=== PATIENT | female | born 1995 | race Caucasian/White ===

== ENCOUNTER 2017-08-31 08:58 | Emergency (ER) | payer MEDICAID ==
[~2017-08-31] VITALS: Ht 157.5 cm; Wt 111.4 kg
[~2017-08-31 08:58] MED LIST: CLIN300C85 PO
[2017-08-31 09:01] VITALS: BP 132/80
[2017-08-31] MEDS ORDERED: TRAM50TA2 PO (09:12)
[2017-08-31] MEDS ORDERED: CEPH500C5 PO (09:12)
== END 2017-08-31 09:33 | disposition home or self-care (01) ==
LOC: ER 08:59
DX: K02.9 Dental caries, unspecified (principal); F17.210 Nicotine dependence, cigarettes, uncomplicated; Z86.14 Personal history of Methicillin resistant Staphylococcus aureus infection; Z88.0 Allergy status to penicillin; Z88.5 Allergy status to narcotic agent; Z79.2 Long term (current) use of antibiotics; Z79.899 Other long term (current) drug therapy
CPT/HCPCS: 99283

== ENCOUNTER 2017-10-05 20:08 | Emergency (ER) | payer MEDICAID ==
[~2017-10-05] VITALS: Ht 157.5 cm; Wt 112.2 kg
[~2017-10-05 20:08] MED LIST changes: +CEPH500C5 PO
[2017-10-05] MEDS ORDERED: NAPR-56 PO (20:30)
[2017-10-05] MEDS ORDERED: CEPH-571 PO (20:30)
[2017-10-05 20:35] VITALS: BP 109/71
== END 2017-10-05 20:37 | disposition home or self-care (01) ==
LOC: ER 20:09
DX: K08.89 Other specified disorders of teeth and supporting structures (principal); Z86.14 Personal history of Methicillin resistant Staphylococcus aureus infection; Z88.5 Allergy status to narcotic agent; Z88.0 Allergy status to penicillin; Z79.899 Other long term (current) drug therapy
CPT/HCPCS: 99283

== ENCOUNTER 2017-10-12 19:08 | Emergency (ER) | payer MEDICAID ==
[~2017-10-12] VITALS: Ht 157.5 cm; Wt 109.0 kg
[~2017-10-12 19:08] MED LIST changes: +CEPH-571 PO; +NAPR-56 PO
[2017-10-12 19:40] VITALS: BP 129/50
[2017-10-12] MEDS ORDERED: CLIN150C2 PO (20:48)
== END 2017-10-12 21:26 | disposition home or self-care (01) ==
LOC: ER 19:08
DX: J06.9 Acute upper respiratory infection, unspecified (principal); J32.1 Chronic frontal sinusitis; J20.9 Acute bronchitis, unspecified; Z86.14 Personal history of Methicillin resistant Staphylococcus aureus infection; Z88.0 Allergy status to penicillin; Z88.5 Allergy status to narcotic agent; Z79.899 Other long term (current) drug therapy
CPT/HCPCS: 99283

== ENCOUNTER 2017-10-31 04:11 | Emergency (ER) | payer MEDICAID, OTHER ==
[~2017-10-31] VITALS: Ht 157.5 cm; Wt 111.2 kg
[~2017-10-31 04:11] MED LIST changes: +LEVO500T2 PO; +METH4TAB3 PO
[2017-10-31 04:18] VITALS: BP 155/89
[2017-10-31] MEDS ORDERED: ibuprofen tablet 400 MG TABLET PO ONE (05:00)
[2017-10-31] MEDS ORDERED: oxymetazoline 15 ML nasal spray NS ONE (05:00)
[2017-10-31] MEDS ORDERED: ACET-2119 PO (05:08)
[2017-10-31] MEDS ORDERED: LORA10TA65 PO (05:08)
[2017-10-31] MEDS ORDERED: AFRIN NS (05:08)
[2017-10-31] MEDS ORDERED: DIPH25CA83 PO (05:08)
[2017-10-31] MEDS ORDERED: diphenhydrAMINE 25mg capsule PO ONE (05:10)
[2017-10-31] MEDS ORDERED: HYDROcodone/acetaminophen 10/325mg tab PO ONE (05:20)
== END 2017-10-31 05:31 | disposition home or self-care (01) ==
LOC: ER 04:12
DX: O99.52 Diseases of the respiratory system complicating childbirth (principal); O26.892 Other specified pregnancy related conditions, second trimester; J32.9 Chronic sinusitis, unspecified; K08.89 Other specified disorders of teeth and supporting structures; Z3A.23 23 weeks gestation of pregnancy; Z86.14 Personal history of Methicillin resistant Staphylococcus aureus infection; Z88.0 Allergy status to penicillin; Z88.5 Allergy status to narcotic agent; Z79.899 Other long term (current) drug therapy
CPT/HCPCS: 99284; Q0163

== ENCOUNTER 2018-11-19 19:40 | Emergency (ER) | payer MEDICAID ==
[~2018-11-19] VITALS: Ht 157.5 cm; Wt 110.0 kg
[~2018-11-19 19:40] MED LIST changes: -CEPH500C5 PO; +CLIN-96 PO; -CLIN300C85 PO; +DIPH25CA83 PO; -LEVO500T2 PO; +LORA10TA65 PO; -NAPR-56 PO
[2018-11-19 19:43] VITALS: BP 165/76
[2018-11-19] MEDS ORDERED: dexamethasone 4mg tablet PO ONE (21:20)
[2018-11-19] MEDS ORDERED: albuterol 2.5 MG/3 ML nebule CONTNEB PRN (21:20)
[2018-11-19] MEDS ORDERED: LORA10TA7 PO (21:23)
[2018-11-19] MEDS ORDERED: PRED20TA PO (21:23)
[2018-11-19] MEDS ORDERED: ALBU6.7H9 INH (21:23)
[2018-11-19] MEDS ORDERED: DIPH-518 PO (21:23)
[2018-11-19] MEDS ORDERED: diphenhydrAMINE 25 MG/10 ML UD oral solution PO ONE (21:25)
[2018-11-20] MEDS ORDERED: HYDR25CA PO (22:52)
== END 2018-11-19 22:35 | disposition home or self-care (01) ==
LOC: ER 19:41
DX: J40 Bronchitis, not specified as acute or chronic (principal); Z86.14 Personal history of Methicillin resistant Staphylococcus aureus infection; Z88.0 Allergy status to penicillin; Z88.5 Allergy status to narcotic agent; Z79.2 Long term (current) use of antibiotics; Z79.899 Other long term (current) drug therapy
CPT/HCPCS: 94644; 94760; 99285; J8540; Q0163; 99283

== ENCOUNTER 2018-11-20 20:36 | Emergency (ER) | payer MEDICAID ==
[~2018-11-20] VITALS: Ht 157.5 cm; Wt 110.0 kg
[~2018-11-20 20:36] MED LIST changes: +ALBU6.7H9 INH; +DIPH-518 PO; +LORA10TA7 PO; +PRED20TA PO
[2018-11-20 21:20] LABS: BASOPHILS % (AUTO) 0.1 % (0-1); EOSINOPHILS % (AUTO) 0 % (0-6); HEMATOCRIT 39.8 % (35.0-45.0); HEMOGLOBIN 13.6 g/dl (12.0-16.0); LYMPHOCYTES # (AUTO) 1.1 X10'3 (1.1-4.8); LYMPHOCYTES % (AUTO) 9.6 % (21-51); MEAN CORPUSCULAR HEMOGLOBIN 31.1 PG (27.0-31.0); MEAN CORPUSCULAR HGB CONC 34.1 g/dL (33.0-36.5); MEAN CORPUSCULAR VOLUME 91.2 FL (78-98); MEAN PLATELET VOLUME 7.4 FL (7.4-10.4); MONOCYTES # (AUTO) 0.6 X10'3 (0-0.9); MONOCYTES % (AUTO) 5.8 % (2-12); NEUTROPHILS # (AUTO) 9.2 X10'3 (1.8-7.7); NEUTROPHILS % (AUTO) 84.5 % (42-75); PLATELET COUNT 355 X10'3 (140-440); RED BLOOD COUNT 4.37 X10'6 (4.20-5.60); WHITE BLOOD COUNT 10.9 X10'3 (4.5-11.0)
[2018-11-20 21:32] LABS: ALANINE AMINOTRANSFERASE 25 U/L (12-78); ALBUMIN/GLOBULIN RATIO 0.9 (1.1-1.5); ALKALINE PHOSPHATASE 70 IU/L (46-116); ANION GAP 13 (8-16); ASPARTATE AMINO TRANSFERASE 8 U/L (10-37); BILIRUBIN,TOTAL 0.2 MG/DL (0.1-1.0); BLOOD UREA NITROGEN 15 MG/DL (7-18); BUN/CREATININE RATIO 18.8 (6.6-38.0); CALCIUM 9.6 MG/DL (8.5-10.1); CHLORIDE 106 MMOL/L (99-107); GLUCOSE 139 MG/DL (70-104); POTASSIUM 4.1 MMOL/L (3.5-5.1); SODIUM 142 MMOL/L (135-145); TOTAL CARBON DIOXIDE 23.4 MMOL/L (24-32); TOTAL PROTEIN 8.3 G/DL (6.4-8.2); eGFR > 90 ML/MIN
[2018-11-20 21:35] LABS: PARTIAL THROMBOPLASTIN TIME 30 SECONDS (22-32)
[2018-11-20] MEDS ORDERED: HYDR25CA PO (22:52)
[2018-11-20 23:10] VITALS: BP 158/91
== END 2018-11-20 23:17 | disposition home or self-care (01) ==
LOC: ER 20:37
DX: F41.9 Anxiety disorder, unspecified (principal); I10 Essential (primary) hypertension; F17.200 Nicotine dependence, unspecified, uncomplicated; Z86.14 Personal history of Methicillin resistant Staphylococcus aureus infection; Z88.0 Allergy status to penicillin; Z88.5 Allergy status to narcotic agent; Z79.899 Other long term (current) drug therapy
CPT/HCPCS: 36415; 71046; 80053; 84484; 85025; 85610; 85730; 93005; 99284

== ENCOUNTER 2018-12-12 20:04 | Emergency (ER) | payer MEDICAID ==
[~2018-12-12] VITALS: Ht 157.5 cm; Wt 110.0 kg
[~2018-12-12 20:04] MED LIST changes: +HYDR25CA PO; -PRED20TA PO
[2018-12-12 20:06] VITALS: BP 151/92
[2018-12-12] MEDS ORDERED: AMOX500C2 PO (20:28)
== END 2018-12-12 20:32 | disposition home or self-care (01) ==
LOC: ER 20:05
DX: J02.9 Acute pharyngitis, unspecified (principal); F41.9 Anxiety disorder, unspecified; Z86.14 Personal history of Methicillin resistant Staphylococcus aureus infection; Z88.0 Allergy status to penicillin; Z88.5 Allergy status to narcotic agent; Z79.899 Other long term (current) drug therapy
CPT/HCPCS: 99283

== ENCOUNTER 2018-12-15 14:09 | Emergency (ER) | payer MEDICAID ==
[~2018-12-15] VITALS: Ht 157.5 cm; Wt 121.0 kg
[~2018-12-15 14:09] MED LIST changes: +AMOX500C2 PO
[2018-12-15 14:23] VITALS: BP 117/51
[2018-12-15] MEDS ORDERED: ACET1TAB12 PO (17:01)
== END 2018-12-15 17:08 | disposition home or self-care (01) ==
LOC: ER 14:09
DX: J02.9 Acute pharyngitis, unspecified (principal); F41.9 Anxiety disorder, unspecified; Z88.0 Allergy status to penicillin; Z88.5 Allergy status to narcotic agent
CPT/HCPCS: 99282

== ENCOUNTER 2019-01-03 15:36 | Emergency (ER) | payer MEDICAID ==
[~2019-01-03] VITALS: Ht 157.5 cm; Wt 110.0 kg
[~2019-01-03 15:36] MED LIST changes: +ACET1TAB12 PO
[2019-01-03 16:58] LABS: BASOPHILS % (AUTO) 0.8 % (0-1); EOSINOPHILS # (AUTO) 0.2 X10'3 (0-0.9); EOSINOPHILS % (AUTO) 3.3 % (0-6); HEMATOCRIT 39.9 % (35.0-45.0); HEMOGLOBIN 13.7 g/dl (12.0-16.0); LYMPHOCYTES # (AUTO) 2.2 X10'3 (1.1-4.8); LYMPHOCYTES % (AUTO) 39.9 % (21-51); MEAN CORPUSCULAR HEMOGLOBIN 31.1 PG (27.0-31.0); MEAN CORPUSCULAR HGB CONC 34.4 g/dL (33.0-36.5); MEAN CORPUSCULAR VOLUME 90.4 FL (78-98); MEAN PLATELET VOLUME 7.4 FL (7.4-10.4); MONOCYTES # (AUTO) 0.4 X10'3 (0-0.9); MONOCYTES % (AUTO) 7.7 % (2-12); NEUTROPHILS # (AUTO) 2.7 X10'3 (1.8-7.7); NEUTROPHILS % (AUTO) 48.3 % (42-75); PLATELET COUNT 320 X10'3 (140-440); RED BLOOD COUNT 4.42 X10'6 (4.20-5.60); RED CELL DISTRIBUTION WIDTH 13.3 % (11.5-14.5); WHITE BLOOD COUNT 5.5 X10'3 (4.5-11.0)
[2019-01-03 17:21] LABS: ALANINE AMINOTRANSFERASE 35 U/L (12-78); ALBUMIN 4.1 G/DL (3.4-5.0); ALKALINE PHOSPHATASE 65 IU/L (46-116); ANION GAP 11 (8-16); ASPARTATE AMINO TRANSFERASE 16 U/L (10-37); BILIRUBIN,TOTAL 0.3 MG/DL (0.1-1.0); BLOOD UREA NITROGEN 8 MG/DL (7-18); BUN/CREATININE RATIO 12.1 (6.6-38.0); CALCIUM 8.9 MG/DL (8.5-10.1); CHLORIDE 104 MMOL/L (99-107); CREATININE 0.66 MG/DL (0.40-0.90); GLUCOSE 96 MG/DL (70-104); LIPASE 62 U/L (73-393); POTASSIUM 3.9 MMOL/L (3.5-5.1); SODIUM 141 MMOL/L (135-145); TOTAL CARBON DIOXIDE 26.1 MMOL/L (24-32); TOTAL PROTEIN 8.3 G/DL (6.4-8.2); eGFR > 90 ML/MIN
[2019-01-03 18:15] VITALS: BP 162/65
[2019-01-03 18:19] LABS: URINE HCG NEGATIVE (NEG)
[2019-01-03 18:24] LABS: CLARITY,URINE CLOUDY (Clear); COLOR,URINE YELLOW (Yellow); GLUCOSE, URINE NEGATIVE (Neg); KETONES,URINE NEGATIVE (Neg); LEUKOCYTE ESTERASE ,URINE NEGATIVE (Neg); NITRITES, URINE NEGATIVE (Neg); OCCULT BLOOD,URINE TRACE-INTACT (Neg); PROTEIN,URINE 30 mg/dl (Neg); UROBILINOGEN,URINE 0.2 E.U/dL (0.2-1.0)
[2019-01-03 18:27] LABS: UA COLLECTION TYPE CLN CATCH MIDSTREAM
[2019-01-03 18:29] LABS: MUCUS STRANDS MANY /LPF (Neg); SQUAMOUS EPITHELIAL CELL,UR MANY /LPF (FEW)
--- NOTE | 2019-01-03 18:30 | NUR ---
PT AWAITING MD AT THIS TIME. ALL LABS BACK. VISITOR AT BEDSIDE. PT IN NO ACUTE DISTRESS.
[2019-01-03 18:31] LABS: BACTERIA,URINE 2+ /HPF (Neg); RBC,URINE 0-2 /HPF (0-2); WBC,URINE 0-4 /HPF (0-4)
== END 2019-01-03 20:05 | disposition home or self-care (01) ==
LOC: ER 15:37
DX: R10.11 Right upper quadrant pain (principal); F41.9 Anxiety disorder, unspecified; Z86.14 Personal history of Methicillin resistant Staphylococcus aureus infection; Z88.0 Allergy status to penicillin; Z88.5 Allergy status to narcotic agent; Z79.2 Long term (current) use of antibiotics; Z79.899 Other long term (current) drug therapy
CPT/HCPCS: 36415; 80053; 81001; 81025; 83690; 85025; 85610; 99283

== ENCOUNTER 2019-01-13 13:29 | Emergency (ER) | payer MEDICAID ==
[~2019-01-13] VITALS: Ht 157.5 cm; Wt 110.0 kg
[~2019-01-13 13:29] MED LIST changes: -AMOX500C2 PO
[2019-01-13 13:53] VITALS: BP 127/85
[2019-01-13] MEDS ORDERED: LIDOcaine Viscous 15ml cup PO ONE (16:10)
[2019-01-13] MEDS ORDERED: mag hydrox/Alum hydrox/simeth 30ml oral suspension PO ONE (16:10)
[2019-01-13] MEDS ORDERED: CLIN-96 PO (16:13)
== END 2019-01-13 16:30 | disposition home or self-care (01) ==
LOC: ER 13:30
DX: J02.0 Streptococcal pharyngitis (principal); F41.9 Anxiety disorder, unspecified; F17.200 Nicotine dependence, unspecified, uncomplicated; Z86.14 Personal history of Methicillin resistant Staphylococcus aureus infection; Z88.0 Allergy status to penicillin; Z88.5 Allergy status to narcotic agent; Z79.2 Long term (current) use of antibiotics; Z79.899 Other long term (current) drug therapy
CPT/HCPCS: 87880; 99283

== ENCOUNTER 2019-04-20 15:17 | Emergency (ER) | payer MEDICAID ==
[~2019-04-20] VITALS: Ht 157.5 cm; Wt 118.0 kg
[~2019-04-20 15:17] MED LIST changes: +ALBU18HF2 INH; +AZIT250T83 PO; +CLIN-90 PO; -CLIN-96 PO
[2019-04-20 16:21] LABS: BASOPHILS % (AUTO) 0.9 % (0-1); EOSINOPHILS # (AUTO) 0.1 X10'3 (0-0.9); EOSINOPHILS % (AUTO) 2.9 % (0-6); HEMATOCRIT 41.1 % (35.0-45.0); LYMPHOCYTES # (AUTO) 1.7 X10'3 (1.1-4.8); LYMPHOCYTES % (AUTO) 39.5 % (21-51); MEAN CORPUSCULAR HEMOGLOBIN 30.5 PG (27.0-31.0); MEAN CORPUSCULAR HGB CONC 34.1 g/dL (33.0-36.5); MEAN CORPUSCULAR VOLUME 89.6 FL (78-98); MEAN PLATELET VOLUME 7.6 FL (7.4-10.4); MONOCYTES # (AUTO) 0.3 X10'3 (0-0.9); MONOCYTES % (AUTO) 7.4 % (2-12); NEUTROPHILS # (AUTO) 2.1 X10'3 (1.8-7.7); NEUTROPHILS % (AUTO) 49.3 % (42-75); PLATELET COUNT 311 X10'3 (140-440); RED BLOOD COUNT 4.59 X10'6 (4.20-5.60); WHITE BLOOD COUNT 4.3 X10'3 (4.5-11.0)
[2019-04-20 16:33] LABS: ALANINE AMINOTRANSFERASE 38 U/L (12-78); ALKALINE PHOSPHATASE 60 IU/L (46-116); ANION GAP 8 (8-16); ASPARTATE AMINO TRANSFERASE 20 U/L (10-37); BILIRUBIN,TOTAL 0.3 MG/DL (0.1-1.0); BLOOD UREA NITROGEN 13 MG/DL (7-18); BUN/CREATININE RATIO 19.7 (6.6-38.0); CALCIUM 9.1 MG/DL (8.5-10.1); CHLORIDE 106 MMOL/L (99-107); CREATININE 0.66 MG/DL (0.40-0.90); GLUCOSE 96 MG/DL (70-104); LIPASE 69 U/L (73-393); SODIUM 142 MMOL/L (135-145); TOTAL CARBON DIOXIDE 28.1 MMOL/L (24-32); TOTAL PROTEIN 7.9 G/DL (6.4-8.2); eGFR > 90 ML/MIN
[2019-04-20 16:39] LABS: CLARITY,URINE CLEAR (Clear); COLOR,URINE YELLOW (Yellow); GLUCOSE, URINE NEGATIVE (Neg); KETONES,URINE NEGATIVE (Neg); LEUKOCYTE ESTERASE ,URINE NEGATIVE (Neg); NITRITES, URINE NEGATIVE (Neg); OCCULT BLOOD,URINE SMALL (Neg); PROTEIN,URINE NEGATIVE (Neg); UROBILINOGEN,URINE 0.2 E.U/dL (0.2-1.0)
[2019-04-20 16:40] LABS: UA COLLECTION TYPE CLN CATCH MIDSTREAM
[2019-04-20 16:44] LABS: URINE HCG NEGATIVE (NEG)
[2019-04-20 16:51] LABS: BACTERIA,URINE FEW /HPF (Neg); MUCUS STRANDS MODERATE /LPF (Neg); SQUAMOUS EPITHELIAL CELL,UR MODERATE /LPF (FEW); WBC,URINE 0-4 /HPF (0-4)
[2019-04-20] MEDS ORDERED: ketorolac tromethamine 15mg/ml inj. IM ONE (17:40)
[2019-04-20 18:51] VITALS: BP 144/85
--- NOTE | 2019-04-20 19:34 | NUR ---
Edil terrell in [facility] - 04/20/19 at 1944 by SHAY ATTEMPTED IV X3 [id number]
--- NOTE | 2019-04-20 20:15 | NUR ---
PT DRINKING BANG ENERGY DRINK AT BEDSIDE
== END 2019-04-20 20:28 | disposition home or self-care (01) ==
LOC: ER 15:18
DX: R10.13 Epigastric pain (principal); F41.9 Anxiety disorder, unspecified; Z98.890 Other specified postprocedural states; Z86.14 Personal history of Methicillin resistant Staphylococcus aureus infection; Z88.0 Allergy status to penicillin; Z88.5 Allergy status to narcotic agent; Z79.2 Long term (current) use of antibiotics; Z79.899 Other long term (current) drug therapy
CPT/HCPCS: 36415; 74176; 80053; 81001; 81025; 83690; 85025; 96372; 99284; J1885

== ENCOUNTER 2019-11-20 17:41 | Emergency (ER) | payer MEDICAID ==
[~2019-11-20] VITALS: Ht 157.5 cm; Wt 124.5 kg
[~2019-11-20 17:41] MED LIST changes: -AZIT250T83 PO; -CLIN-90 PO; +CLIN-97 PO
[2019-11-20 18:04] VITALS: BP 152/89
[2019-11-20] MEDS ORDERED: CLIN300C70 PO (18:28)
[2019-11-20] MEDS ORDERED: HYDROcodone/acetaminophen 5mg/325mg tablet PO ONE (18:30)
[2019-11-20] MEDS ORDERED: ondansetron 4mg rapidly disintigrating tab PO ONE (18:30)
[2019-11-20] MEDS ORDERED: ONDA4TAB6 PO (18:48)
[2019-11-20] MEDS ORDERED: HYDR-4383 PO (18:48)
== END 2019-11-20 19:06 | disposition home or self-care (01) ==
LOC: ER 17:59
DX: K08.89 Other specified disorders of teeth and supporting structures (principal); F41.9 Anxiety disorder, unspecified; Z86.14 Personal history of Methicillin resistant Staphylococcus aureus infection; Z98.890 Other specified postprocedural states; Z88.0 Allergy status to penicillin; Z79.899 Other long term (current) drug therapy; Z79.2 Long term (current) use of antibiotics; Z88.5 Allergy status to narcotic agent
CPT/HCPCS: 99283

== ENCOUNTER 2019-12-11 00:25 | Emergency (ER) | payer MEDICAID ==
[~2019-12-11] VITALS: Ht 157.5 cm; Wt 112.0 kg
[~2019-12-11 00:25] MED LIST changes: +HYDR-4383 PO; +ONDA4TAB6 PO
[2019-12-11] MEDS ORDERED: HYDROcodone/acetaminophen 10/325mg tab PO ONE (00:55)
[2019-12-11] MEDS ORDERED: amoxicillin 250mg capsule PO ONE (00:55)
[2019-12-11] MEDS ORDERED: bupivacaine 0.25%/epinephrine 1:200,000 inj (contains preserv. MDV) IJ ONE (00:55)
[2019-12-11] MEDS ORDERED: BUPIVAcaine 0.5% W/EPI /PF 30ml vial IJ ONE (01:15)
[2019-12-11] MEDS ORDERED: AMOX-101 PO (01:48)
[2019-12-11 01:53] VITALS: BP 156/102
== END 2019-12-11 01:55 | disposition home or self-care (01) ==
LOC: ER 00:25
DX: K04.7 Periapical abscess without sinus (principal); F41.9 Anxiety disorder, unspecified; F12.90 Cannabis use, unspecified, uncomplicated; Z86.14 Personal history of Methicillin resistant Staphylococcus aureus infection; Z98.890 Other specified postprocedural states; Z88.0 Allergy status to penicillin; Z88.5 Allergy status to narcotic agent; Z79.2 Long term (current) use of antibiotics; Z79.899 Other long term (current) drug therapy
CPT/HCPCS: 41800; 99283; 99284